=== PATIENT | male | born 1990 | race Caucasian/White ===

== ENCOUNTER 2020-10-28 10:01 | Emergency (ER) | payer OTHER ==
[2020-10-28 10:10] VITALS: RESP 18; TEMP 98.4
[2020-10-28] MEDS ORDERED: LIDOCAINE 1% INJ 10MG/ML (20 ML MDV) SQ ONE (10:40)
--- NOTE | 2020-10-28 11:11 | ED ---
Skin/Abscess/FB HPI - General Chief complaint: Skin/Abscess/Foreign Body Stated complaint: male Time Seen by Provider: 10/28/20 10:28 Source: patient Mode of arrival: ambulatory Limitations: no limitations - History of Present Illness Initial comments: Patient is a 30-year-old male presenting to the emergency Department with complaints of an abscess at the top of his buttocks for the last 2 days. He noticed some soreness in the area, and feels some hardness in the area. He states that been in for 2 days. He denies any fevers or chills, no nausea or vomiting. He states he's never had anything like this before. Denies any chest pain or shortness of breath, no cough. No further complaints. - Related Data Previous Rx's Medication Instructions Recorded Cephalexin [Keflex] 500 mg PO Q6HR 7 Days #28 cap 10/28/20 Allergies Allergy/AdvReac Type Severity Reaction Status Date / Time No Known Allergies Allergy Verified 10/28/20 10:07 Review of Systems ROS Statement: Those systems with pertinent positive or pertinent negative responses have been documented in the HPI. ROS Other: All systems not noted in ROS Statement are negative. Past Medical History Additional Past Medical History / Comment(s): born intersex with several surgeries History of Any Multi-Drug Resistant Organisms: None Reported Past Psychological History: No Psychological Hx Reported Smoking Status: Never smoker Past Alcohol Use History: None Reported Past Drug Use History: None Reported General Exam - General Exam Comments Initial Comments: GENERAL: Patient is well-developed and well-nourished. Patient is nontoxic and in no acute distress. HEAD: Atraumatic, normocephalic. EYES: Pupils equal round and reactive to light, extraocular movements intact, sclera anicteric, conjunctiva are normal. Eyelids were unremarkable. LUNGS: Unlabored respirations. Breath sounds clear to auscultation bilaterally and equal. No wheezes rales or rhonchi. HEART: Regular rate and rhythm without murmurs, rubs or gallops. MUSCULOSKELETAL: Normal extremities with adequate strength and normal range of motion, no pitting or edema. No clubbing or cyanosis. NEUROLOGICAL: Patient is alert and oriented x 3. Normal speech, normal gait. PSYCH: Normal mood, normal affect. SKIN: Warm, Dry, normal turgor, no rashes. Patient has a 2 cm area of abscess on the right inner glue, superior aspect. There is lots of induration, no fluctuance to the area, some mild erythema. 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: Identity, Site, Procedure, Consent Site: right inner glut Site Marked: Yes Site Verified With Patient/Guardian: Yes Final Confirmation: Procedure, Site, Laterality - Incision & Drainage Consent Obtained: verbal consent, written consent Indication: Abscess Site: buttock Size (cm): 2 Anesthetic Used: lidocaine 1% Amount (mLs): 3 I&D Cleaning Method: Alcohol Wipe Scalpel Used: #11 I&D Drainage Obtained: Blood Patient Tolerated Procedure: well Medical Decision Making - Medical Decision Making Patient is a 30-year-old male here with a 2 cm abscess to the right inner superior gluteus, there is some mild surrounding erythema, the area is very indurated, no fluctuance. I did attempt an I & D, mostly just blood was drained. Patient's wound was cleaned. I will start him on Keflex. We discussed warm packs to the area, warm baths. Return parameters were discussed with him and he verbalized understanding. Case discussed with Dr. Cueto. Disposition Clinical Impression: Abscess, gluteal, right Disposition: HOME SELF-CARE Condition: Stable Instructions (If sedation given, give patient instructions): Abscess Incision and Drainage (ED) Additional Instructions: Please return to the Emergency Department if symptoms worsen or any other concerns. Take antibiotics as prescribed. Continue with warm compresses/warm baths as discussed. Prescriptions: Cephalexin [Keflex] 500 mg PO Q6HR 7 Days #28 cap Is patient prescribed a controlled substance at d/c from ED?: No Referrals: None,Stated [Primary Care Provider] - 1-2 days Time of Disposition: 11:11
[2020-10-28 11:35] VITALS: BP 112/74; PULSE 87
== END 2020-10-28 11:26 | disposition home or self-care (01) ==
LOC: EC 10:01
DX: L02.31 Cutaneous abscess of buttock (principal)
CPT/HCPCS: 99282; J2001